=== PATIENT | female | born 1965 | race Caucasian/White ===

== ENCOUNTER 2016-11-08 21:43 | Emergency (ER) | payer OTHER ==
--- NOTE | 2016-11-08 21:57 | ER Document Report ---
ED Medical Screen (RME) - General Stated Complaint: COUGH Time seen by provider: 21:55 Mode of Arrival: Ambulatory Information source: Patient Notes: 51 year-old female presents for cough and cold with fever for 4 days. States she sleeps a lot and has no energy. No fever today. States she has a history of COPD smokes a pack a day. I have greeted and performed a rapid initial assessment of this patient. A comprehensive ED assessment and evaluation of the patient, analysis of test results and completion of medical decision making process will be conducted by an additional ED providers. TRAVEL OUTSIDE OF THE [place] IN LAST 30 DAYS: No - Related Data Allergies/Adverse Reactions: strawberry [[place]] Allergy (Verified 10/06/14 08:50) rash Past Medical History - Past Medical History Cardiac Medical History: Reports: Hx DVT - rle, Hx Heart Attack - at 36? Denies: Hx Coronary Artery Disease, Hx Hypertension Pulmonary Medical History: Denies: Hx Asthma, Hx Bronchitis, Hx COPD, Hx Pneumonia Neurological Medical History: Denies: Hx Cerebrovascular Accident, Hx Seizures Renal/ Medical History: Reports: Hx Ovarian Cysts Musculoskeltal Medical History: Denies Hx Arthritis Past Surgical History: Reports: Hx Cardiac Catheterization, Hx Section - 3, Hx Hysterectomy - partial, Hx Tubal Ligation - Immunizations Immunizations up to date: Yes Hx Diphtheria, Pertussis, Tetanus Vaccination: Yes
--- NOTE | 2016-11-08 23:37 | ER Document Report ---
ED Respiratory Problem - General Chief Complaint: Cold Symptoms Stated Complaint: COUGH Mode of Arrival: Ambulatory Information source: Patient Notes: Patient is a 51-year-old female who presents with a history of COPD with 4 days of cough, chills, sinus pressure. Patient states that her cough is dry and she is not been getting anything up with it. She admits to chills but does not know she's had a fever or not. She admits to wheezing and shortness of breath. She does have inhalers at home but has not been using them because she has been so tired that she's just been sleeping all the time. TRAVEL OUTSIDE OF THE [place] IN LAST 30 DAYS: No - Related Data Allergies/Adverse Reactions: strawberry [[place]] Allergy (Verified 11/08/16 21:55) rash Past Medical History - General Information source: Patient - Social History Smoking Status: Current Every Day Smoker Chew tobacco use (# tins/day): No Frequency of alcohol use: None Drug Abuse: None Family History: Reviewed & Not Pertinent Patient has suicidal ideation: No Patient has homicidal ideation: No - Past Medical History Cardiac Medical History: Reports: Hx DVT - rle, Hx Heart Attack - at 36? Denies: Hx Coronary Artery Disease, Hx Hypertension Pulmonary Medical History: Denies: Hx Asthma, Hx Bronchitis, Hx COPD, Hx Pneumonia Neurological Medical History: Denies: Hx Cerebrovascular Accident, Hx Seizures Renal/ Medical History: Reports: Hx Ovarian Cysts. Denies: Hx Peritoneal Dialysis Musculoskeltal Medical History: Denies Hx Arthritis Past Surgical History: Reports: Hx Cardiac Catheterization, Hx Section - 3, Hx Hysterectomy, Hx Tubal Ligation - Immunizations Immunizations up to date: Yes Hx Diphtheria, Pertussis, Tetanus Vaccination: Yes Hx Pneumococcal Vaccination: 07/20/11 Review of Systems - Review of Systems Constitutional: See HPI EENT: See HPI Cardiovascular: No symptoms reported Respiratory: See HPI Gastrointestinal: No symptoms reported Genitourinary: No symptoms reported Female Genitourinary: No symptoms reported Musculoskeletal: No symptoms reported Skin: No symptoms reported Hematologic/Lymphatic: No symptoms reported Neurological/Psychological: No symptoms reported Physical Exam - Vital signs Vitals: Temp Pulse Resp BP Pulse Ox 98.1 F 86 20 114/76 96 11/08/16 21:48 11/08/16 21:48 11/08/16 21:48 11/08/16 21:48 11/08/16 21:48 - Notes Notes: PHYSICAL EXAMINATION: GENERAL: Mildly ill-appearing, but in no acute distress. HEAD: Atraumatic, normocephalic. EYES: Pupils equal round and reactive to light, extraocular movements intact, sclera anicteric, conjunctiva are normal. ENT: ear canals without erythema or foreign body, TMs pearly cali with good bony landmarks, nares with mucoid discharge, oropharynx clear without exudates. Moist mucous membranes. Maxillary sinuses tender to palpation NECK: Normal range of motion, supple without lymphadenopathy LUNGS: CTAB and equal. No wheezes rales or rhonchi. HEART: Regular rate and rhythm without murmurs EXTREMITIES: Normal range of motion, no pitting edema. No cyanosis. NEUROLOGICAL: Cranial nerves grossly intact. Normal sensory/motor exams. PSYCH: Normal mood, normal affect. SKIN: Warm, Dry, normal turgor, no rashes or lesions noted Course - Re-evaluation Re-evalutation: 11/08/16 23:39 - Vital Signs Vital signs: Temp Pulse Resp BP Pulse Ox 98.1 F 86 20 114/76 96 11/08/16 21:48 11/08/16 21:48 11/08/16 21:48 11/08/16 21:48 11/08/16 21:48 Discharge - Discharge Clinical Impression: COPD exacerbation Sinusitis Qualifiers: Sinusitis location: maxillary Chronicity: acute Recurrence: non-recurrent Qualified Code(s): J01.00 - Acute maxillary sinusitis, unspecified Condition: Stable Disposition: HOME, SELF-CARE Additional Instructions: Please utilize your inhalers every 4 hours as needed for shortness of breath and wheezing. Return immediately for any new or worsening symptoms. Follow up with primary care provider, call tomorrow to make followup appointment. Prescriptions: Azithromycin [Zithromax 250 mg Tablet] 250 mg PO ASDIR PRN #6 tablet PRN Reason: Promethazine/Dextromethorphan [Promethazine-Dm Syrup] 5 ml PO Q8 PRN #120 ml PRN Reason:
[2016-11-08] MEDS ORDERED: GUAIFENESIN/D-METHORPHAN (200-20 MG) SYRUP 10 ML PO ONE (23:38)
[2016-11-08] MEDS ORDERED: IPRATROPIUM/ALBUTEROL 0.5-2.5 MG/3 ML AMPUL NEB ONE (23:38)
[2016-11-08] MEDS ORDERED: AZITHROMYCIN 250 MG TABLET PO ONE (23:38)
[2016-11-09 00:14] VITALS: BP 108/61
== END 2016-11-09 00:14 | disposition home or self-care (01) ==
LOC: ER 21:43
DX: J44.1 Chronic obstructive pulmonary disease with (acute) exacerbation (principal); J01.00 Acute maxillary sinusitis, unspecified; F17.200 Nicotine dependence, unspecified, uncomplicated; Z86.718 Personal history of other venous thrombosis and embolism; Z90.710 Acquired absence of both cervix and uterus; I25.2 Old myocardial infarction
CPT/HCPCS: 94640; 99283; 71020; J3490; J7620

== ENCOUNTER 2017-07-14 16:27 | Emergency (ER) | payer OTHER ==
[2017-07-14 16:40] VITALS: BP 133/77
== END 2017-07-15 00:38 | disposition left against medical advice (07) ==
LOC: ER 16:27
DX: Z53.21 Procedure and treatment not carried out due to patient leaving prior to being seen by health care provider (principal)

== ENCOUNTER 2017-07-21 20:50 | Emergency (ER) | payer OTHER ==
--- NOTE | 2017-07-21 22:23 | ER Document Report ---
ED General - General Chief Complaint: Shortness Of Breath Stated Complaint: CHEST PAIN Time Seen by Provider: 07/21/17 22:22 TRAVEL OUTSIDE OF THE [place] IN LAST 30 DAYS: No - Related Data Allergies/Adverse Reactions: strawberry [[place]] Allergy (Verified 07/14/17 16:37) rash Past Medical History - Social History Family History: Reviewed & Not Pertinent Patient has suicidal ideation: No Patient has homicidal ideation: No - Past Medical History Cardiac Medical History: Reports: Hx DVT - rle, Hx Heart Attack - at 36? Denies: Hx Coronary Artery Disease, Hx Hypertension Pulmonary Medical History: Denies: Hx Asthma, Hx Bronchitis, Hx COPD, Hx Pneumonia Neurological Medical History: Denies: Hx Cerebrovascular Accident, Hx Seizures Renal/ Medical History: Reports: Hx Ovarian Cysts. Denies: Hx Peritoneal Dialysis Musculoskeltal Medical History: Denies Hx Arthritis Past Surgical History: Reports: Hx Cardiac Catheterization, Hx Section - 3, Hx Hysterectomy, Hx Tubal Ligation - Immunizations Immunizations up to date: Yes Hx Diphtheria, Pertussis, Tetanus Vaccination: Yes Hx Pneumococcal Vaccination: 07/20/11 Physical Exam - Vital signs Vitals: Temp Pulse Resp BP Pulse Ox 98.3 F 81 22 H 138/91 H 98 07/21/17 21:08 07/21/17 21:08 07/21/17 21:08 07/21/17 21:08 07/21/17 21:08 Course - Vital Signs Vital signs: Temp Pulse Resp BP Pulse Ox 98.3 F 81 22 H 138/91 H 98 07/21/17 21:08 07/21/17 21:08 07/21/17 21:08 07/21/17 21:08 07/21/17 21:08 - EKG Interpretation by Me Additional EKG results interpreted by me: 07/21/17 22:22 07/21/17 22:30
--- NOTE | 2017-07-21 22:30 | ER Document Report ---
ED General - General Chief Complaint: Shortness Of Breath Stated Complaint: CHEST PAIN Time Seen by Provider: 07/21/17 22:22 Notes: Patient is a 52-year-old female presents with complaint of cough. She has pain also just at her diaphragm which she says is related to coughing. She says she does not cough she has and the pain. Since symptoms have been ongoing for a few days. She says she has had a cold that seems to have progressed to the cough. She has a history of COPD and does continue to smoke. She denies any fevers at home. She went to urgent care today received a shot of steroids and breathing treatments and was sent to ER from there. No other complaints at this time. TRAVEL OUTSIDE OF THE [place] IN LAST 30 DAYS: No - Related Data Allergies/Adverse Reactions: strawberry [[place]] Allergy (Verified 07/14/17 16:37) rash Past Medical History - Social History Smoking Status: Current Every Day Smoker Frequency of alcohol use: None Drug Abuse: None Family History: Reviewed & Not Pertinent Patient has suicidal ideation: No Patient has homicidal ideation: No - Past Medical History Cardiac Medical History: Reports: Hx DVT - rle, Hx Heart Attack - at 36? Denies: Hx Coronary Artery Disease, Hx Hypertension Pulmonary Medical History: Denies: Hx Asthma, Hx Bronchitis, Hx COPD, Hx Pneumonia Neurological Medical History: Denies: Hx Cerebrovascular Accident, Hx Seizures Renal/ Medical History: Reports: Hx Ovarian Cysts. Denies: Hx Peritoneal Dialysis Musculoskeltal Medical History: Denies Hx Arthritis Past Surgical History: Reports: Hx Cardiac Catheterization, Hx Section - 3, Hx Hysterectomy, Hx Tubal Ligation - Immunizations Immunizations up to date: Yes Hx Diphtheria, Pertussis, Tetanus Vaccination: Yes Hx Pneumococcal Vaccination: 07/20/11 Review of Systems - Review of Systems Notes: My Normal Review Basic REVIEW OF SYSTEMS: CONSTITUTIONAL : Denies fever, chills, or sweats. Denies recent illness. EENT: Nasal congestion. CARDIOVASCULAR: Denies chest pain. RESPIRATORY: Cough. GASTROINTESTINAL: Pain of the upper abdomen at the diaphragm with coughing.. Denies nausea, vomiting, or diarrhea. Denies constipation. MUSCULOSKELETAL: Denies neck or back pain or joint pain or swelling. SKIN: Denies rash or skin lesions. NEUROLOGICAL: Denies altered mental status or loss of consciousness. Denies headache. Denies weakness or paralysis or loss of use of either side. Denies problems with gait or speech. Denies sensory or motor loss. ALL OTHER SYSTEMS REVIEWED AND NEGATIVE. Physical Exam - Vital signs Vitals: Temp Pulse Resp BP Pulse Ox 98.3 F 81 22 H 138/91 H 98 07/21/17 21:08 07/21/17 21:08 07/21/17 21:08 07/21/17 21:08 07/21/17 21:08 - Notes Notes: General Appearance: Well nourished, alert, cooperative, no acute distress, no obvious discomfort. Repeated coughing during exam. Vitals: reviewed, See vital signs table. Head: no swelling or tenderness to the head Eyes: PERRL, EOMI, Conjuctiva clear Mouth: No decreasd moisture Neck: Supple, no neck tenderness, No thyromegaly Lungs: Coarse rhonchorous breath sounds in the lower lobes of both lungs as much worse on the right side. No accessory muscle use, good air exchange bilaterally. Heart: Normal rate, Regular rythm, No murmur, no rub Abdomen: Normal BS, soft, No rigidity, mild pain to palpation over the upper abdomen at the level of diaphragm., No guarding, no rebound, no abdominal masses , no organomegaly Extremities: strength 5/5 in all extremities, good pulses in all extremities, no swelling or tenderness in the extremities, no edema. Skin: warm, dry, appropriate color, no rash Neuro: speech clear, oriented x 3, normal affect, responds appropriately to questions. Course - Re-evaluation Re-evalutation: 07/21/17 23:54 On reevaluation patient clinically looks about the same. She still has some wheezing and rhonchi in the bases. I will give her breathing treatment. She is currently receiving the magnesium. Chest x-ray shows does not show a consolidated pneumonia at this time. 07/22/17 01:44 Patient is feeling some better after receiving the magnesium and breathing treatments.. She received a "steroid shot" at the urgent care. I will place her on prednisone. She has an inhaler that she had from urgent care. We will also place her on antibiotics being that she is a smoker, has had current cough and congestion, and that she continues have a focal area of rhonchi on the right lower lobe. Clinically this is consistent with developing pneumonia. I informed the patient that if she feels that she is worsening in any way she must return to ER immediately. I informed her that she needs to be reevaluated within 2 days. I told her that if she cannot get into her primary care doctor within 2 days that she should come back to the ER so we can at least reevaluate her. Patient agrees with plan will be discharged home. I feel she is safe to be discharged home because majority of her lung howard are clear except for the right base, she has no tachycardia, no tachypnea, and her pulse oximetry is 94- 97% on room air. Dictation of this chart was performed using voice recognition software; therefore, there may be some unintended grammatical errors. - Vital Signs Vital signs: Temp Pulse Resp BP Pulse Ox 97.8 F 81 25 H 129/73 H 95 07/22/17 01:08 07/21/17 21:08 07/22/17 01:01 07/22/17 01:01 07/22/17 01:01 - EKG Interpretation by Me Additional EKG results interpreted by me: 07/21/17 22:30 EKG is reviewed and interpreted by me. EKG shows normal sinus rhythm with a rate of [address] segment elevation or depression. No ischemic T-wave inversions. IN interval, QRS duration, QTc intervals are within normal range. Old EKG for comparison is from October 06, 2014. Discharge - Discharge Clinical Impression: Bronchitis Condition: Good Disposition: HOME, SELF-CARE Additional Instructions: BRONCHITIS WITH BRONCHOSPASM (WHEEZING): You have bronchitis with bronchospasm (wheezing). Sometimes people develop wheezing with a chest cold. This occurs either because of an underlying tendency toward asthma or because the virus itself irritates the bronchial tubes. This irritation causes cough, shortness of breath, and wheezing. Emergency treatment of bronchospasm may include adrenaline shots or bronchodilator aerosol. You may feel lightheaded and have a rapid pulse for an hour or two. Rest and get plenty of fluids. At home, we'll treat you with a bronchodilator inhaler. Corticosteroids may be required for some patients. Until you recover, avoid chemical fumes, dusts, pollens, and exercising in very cold or dry air. If you smoke, stop now! Most cases of bronchitis get better without antibiotics. We prescribe antibiotics when we believe bacteria are damaging your airways, or if there's high risk the bronchitis will worsen into pneumonia. Increase your fluid intake. A cool mist humidifier may make your lungs more comfortable. An expectorant (cough medicine that loosens phlegm) can help. Repeated episodes of bronchitis and bronchospasm may result in lung damage -- for example, chronic bronchitis, recurrent pneumonias, or emphysema. If you develop a fever, increased wheezing, chest pain, or severe shortness of breath, you should contact the doctor immediately. INHALED BRONCHODILATORS: You have received a treatment of and/or prescription for an inhaled bronchodilator -- a medication which stimulates the airways in the lung to dilate. This improves the flow of air in asthma, bronchitis, and emphysema. These medicines have some similarity to adrenaline, and can cause similar side effects: shakiness, racing heart, and a sense of nervousness. These side effects decrease with time. Contact your doctor if these side effects are severe. Do not over-use the medicine. Too-frequent use of the inhaler may make it ineffective. Call your doctor if the inhaler is not controlling your symptoms at the prescribed doses. STEROID MEDICATION: You have been given an injection of or oral medicine of the cortisone/ steroid class. This medication is used to control inflammation or allergy. Charlie t is usually only given for a short period of time, until the acute process subsides. There are usually no side effects from short-term use of cortisone-like medications. Some persons feel an increased sense of well-being and are not sleepy at bedtime. Long-term use of cortisone medications is best avoided, unless required for a severe condition. If your condition does not remit, or relapses after the course of corticosteroid medication, you should consult your physician. ANTIBIOTIC THERAPY: You have been given an antibiotic prescription. It's important that you take all the medication, unless instructed otherwise by your physician. Failure to complete the entire course can result in relapse of your condition. Common side effects of antibiotics include nausea, intestinal cramping, or diarrhea. Women may develop vaginal yeast infections, and babies can get yeast (thrush) in the mouth following the use of antibiotics. Contact your physician if you develop significant side effects from this medication. Allergy to this antibiotic can result in hives, wheezing, faintness, or itching. If symptoms of allergy occur, stop the medication and call your doctor. SMOKING: If you smoke, you should stop smoking. The tar and chemicals in cigarette smoke are harmful. Smoking has been shown to cause: emphysema chronic bronchitis lung cancer mouth and throat cancer stomach and pancreas cancer premature aging defects In addition, smoking increases ear and lung infections in children of smokers. FOLLOW-UP CARE: If you have been referred to a physician for follow-up care, call the physician s office for an appointment as you were instructed or within the next two days. If you experience worsening or a significant change in your symptoms, notify the physician immediately or return to the Emergency Department at any time for re-evaluation. Please take the antibiotics and steroids as prescribed. Please try to quit smoking. Please use your albuterol inhaler as 2 puffs every 4 hours. Please return to the ER immediately if you have worsening difficulty breathing, fevers , or feel that you are worsening in anyway. Please follow up with your doctor or the ER in 2 days for reevaluation. Prescriptions: Levofloxacin [Levaquin 750 mg Tablet] 750 mg PO DAILY #5 tablet Prednisone [Deltasone 20 mg Tablet] 3 tab PO DAILY 5 Days tablet Forms: Return to Work Referrals: VICKY FAJARDO NP [Primary Care Provider] - 07/24/17
[2017-07-21] MEDS: MAGNESIUM SULFATE/D5W 1 GM/100 ML RTUPB IV SCH (23:28)
--- NOTE | 2017-07-21 23:29 | RADIOLOGY REPORT (SQ) ---
EXAM DESCRIPTION: CHEST PA/LAT COMPLETED DATE/TIME: 07/21/2017 10:54 pm REASON FOR STUDY: cough COMPARISON: None. NUMBER OF VIEWS: Two view. TECHNIQUE: Frontal and lateral radiographic views of the chest acquired. LIMITATIONS: None. FINDINGS: LUNGS AND PLEURA: Peribronchial cuffing and interstitial changes. No consolidation, effus ion, or pneumothorax. MEDIASTINUM AND HILAR STRUCTURES: No masses. No contour abnormalities. HEART AND VASCULAR STRUCTURES: Heart normal in size and contour. No evidence for failure. BONES: No acute findings. HARDWARE: None in the chest. OTHER: No other significant finding. IMPRESSION: REACTIVE AIRWAY DISEASE VERSUS VIRAL SYNDROME. NO CONSOLIDATION. TECHNICAL DOCUMENTATION: JOB ID: [id number] [employer]- All Rights Reserved
[2017-07-21] MEDS ORDERED: IPRATROPIUM/ALBUTEROL 0.5-2.5 MG/3 ML AMPUL NEB ONE (23:54)
[2017-07-22] MEDS: MAGNESIUM SULFATE/D5W 1 GM/100 ML RTUPB IV SCH (00:24)
[2017-07-22] MEDS ORDERED: LEVOFLOXACIN 750 MG TABLET PO ONE (00:57)
[2017-07-22 01:17] VITALS: BP 129/73
--- NOTE | 2017-07-22 04:45 | EKG REPORT ---
SEVERITY:- BORDERLINE ECG - SINUS RHYTHM BORDERLINE T ABNORMALITIES, ANTERIOR LEADS : Confirmed by: Iza Carrillo MD 22-Jul-2017 04:29:10
== END 2017-07-22 01:45 | disposition home or self-care (01) ==
LOC: ER 20:50
DX: J40 Bronchitis, not specified as acute or chronic (principal); F17.200 Nicotine dependence, unspecified, uncomplicated; Z86.718 Personal history of other venous thrombosis and embolism; I25.2 Old myocardial infarction; Z90.710 Acquired absence of both cervix and uterus
CPT/HCPCS: 93005; 94640; 99284; 96365; 96366; 71020; 93010; J3475 ×2; J7620

== ENCOUNTER 2018-07-19 06:35 | Emergency (ER) | payer BC, OTHER ==
[2018-07-19] MEDS ORDERED: METHYLPREDNISOLONE INJ 125 MG/2 ML SDV IV ONE (07:23)
[2018-07-19] MEDS ORDERED: LIDOCAINE 1% INJ-PF (10 MG/ML) 30 ML SDV NEB ONE (07:23)
[2018-07-19] MEDS ORDERED: LIDOCAINE 1% INJ-PF (10 MG/ML) 30 ML SDV INJ ONE (07:23)
[2018-07-19] MEDS ORDERED: IPRATROPIUM/ALBUTEROL 0.5-2.5 MG/3 ML AMPUL NEB ONE (07:23)
--- NOTE | 2018-07-19 07:23 | ER Document Report ---
ED Respiratory Problem - General Mode of Arrival: Ambulatory Information source: Patient TRAVEL OUTSIDE OF THE [place] IN LAST 30 DAYS: No - General Chief Complaint: Breathing Difficulty Stated Complaint: DIFFICULTY BREATHING Time Seen by Provider: 07/19/18 07:06 Notes: 53-year-old female who presents to the emergency department today with complaints of 2-3 days of a nonproductive cough with wheezing. Patient is a smoker and has been for quite some time. Patient states that she always has a chronic cough from the smoking however it has gotten worse over the last 2 or 3 days. Patient denies any fevers. (FLOR CRANE) - Related Data Allergies/Adverse Reactions: strawberry [[place]] Allergy (Verified 07/19/18 06:40) rash Past Medical History - General Information source: Patient - Social History Smoking Status: Current Every Day Smoker Cigarette use (# per day): Yes Chew tobacco use (# tins/day): No Frequency of alcohol use: Occasional Drug Abuse: None Family History: Reviewed & Not Pertinent Patient has suicidal ideation: No Patient has homicidal ideation: No - Past Medical History Cardiac Medical History: Reports: Hx DVT - RLE, Hx Heart Attack - at 36? Renal/ Medical History: Reports: Hx Ovarian Cysts Past Surgical History: Reports: Hx Cardiac Catheterization, Hx Section - 3, Hx Hysterectomy, Hx Tubal Ligation - Immunizations Immunizations up to date: Yes Hx Diphtheria, Pertussis, Tetanus Vaccination: Yes Hx Pneumococcal Vaccination: 07/20/11 Review of Systems - Review of Systems Constitutional: No symptoms reported EENT: No symptoms reported Cardiovascular: No symptoms reported Respiratory: See HPI, Cough, Wheezing Gastrointestinal: No symptoms reported Genitourinary: No symptoms reported Female Genitourinary: No symptoms reported Musculoskeletal: No symptoms reported Skin: No symptoms reported Hematologic/Lymphatic: No symptoms reported Neurological/Psychological: No symptoms reported -: Yes All other systems reviewed and negative Physical Exam - Vital signs Vitals: Temp Pulse Resp BP Pulse Ox 97.6 F 96 24 H 116/78 96 07/19/18 06:39 07/19/18 06:39 07/19/18 06:39 07/19/18 06:39 07/19/18 06:39 - Notes Notes: Physical Exam: General: Alert, appears well. HEENT: Normocephalic. Atraumatic. PERRL. Extraocular movements intact. Oropharynx clear. Neck: Supple. Non-tender. Respiratory: Tight inspiratory and expiratory wheezing bilaterally. Dry cough spasm. Tachypneic. 2-3 word sentences moreso due to cough than dyspnea. Cardiovascular: Regular rate and rhythm. Abdominal: Normal Inspection. Non-tender. No distension. Normal Bowel Sounds. Back: Non-tender. No deformity or step off. Extremities: Moves all four extremities. Upper extremities: Normal inspection. Normal ROM. Lower extremities: Normal inspection. No edema. Normal ROM. Neurological: Normal cognition. AAOx4. Normal speech. Psychological: Normal affect. Normal Mood. Skin: Warm. Dry. Normal color. ([place]ANE) - Vital Signs Vital signs: Temp Pulse Resp BP Pulse Ox 97.6 F 96 27 H 113/64 95 07/19/18 06:39 07/19/18 06:39 07/19/18 10:01 07/19/18 10:00 07/19/18 10:01 Discharge - Discharge Clinical Impression: COPD with acute exacerbation Condition: Stable Disposition: HOME, SELF-CARE Additional Instructions: Bronchitis with Bronchospasm (Wheezing) You have bronchitis with bronchospasm (wheezing). Sometimes people develop wheezing with a chest cold. This occurs either because of an underlying tendency toward asthma or because the virus itself irritates the bronchial tubes. This irritation causes cough, shortness of breath, and wheezing. Emergency treatment of bronchospasm may include adrenaline shots or bronchodilator aerosol. You may feel lightheaded and have a rapid pulse for an hour or two. Rest and get plenty of fluids. At home, we'll treat you with a bronchodilator inhaler. Corticosteroids may be required for some patients. Until you recover, avoid chemical fumes, dusts, pollens, and exercising in very cold or dry air. If you smoke, stop now! Most cases of bronchitis get better without antibiotics. We prescribe antibiotics when we believe bacteria are damaging your airways, or if there's high risk the bronchitis will worsen into pneumonia. Increase your fluid intake. A cool mist humidifier may make your lungs more comfortable. An expectorant (cough medicine that loosens phlegm) can help. Repeated episodes of bronchitis and bronchospasm may result in lung damage -- for example, chronic bronchitis, recurrent pneumonias, or emphysema. If you develop a fever, increased wheezing, chest pain, or severe shortness of breath, you should contact the doctor immediately. Start the prednisone and the Zithromax tomorrow. Drink plenty of fluids. Use the albuterol inhaler 2 puffs every 2-4 hours as needed for wheezing. Stop smoking. Rest. Follow-up with your doctor tomorrow if not improving. RETURN TO THE EMERGENCY ROOM IF ANY NEW OR WORSENING SYMPTOMS. Prescriptions: Albuterol Sulfate [Proair HFA] 1 - 2 puff IH Q4 PRN #1 inhaler PRN Reason: Azithromycin [Zithromax 250 mg Tablet] 250 mg PO DAILY #4 tablet Prednisone [Deltasone 10 mg Tablet] 10 mg PO ASDIR PRN #21 tablet PRN Reason: Referrals: VICKY FAJARDO, [employer] [COMMUNITY BASED STAFF] - Follow up as needed Scribe Attestation: 07/19/18 08:33 I personally performed the services described in the documentation, reviewed and edited the documentation which was dictated to the scribe in my presence, and it accurately records my words and actions. (AMMI JEFFRIES) Scribe Documentation - Scribe Written by Dwight:: Dwight Adame, 07/19/2018 0756 acting as scribe for :: Michael
[2018-07-19] MEDS ORDERED: ALBUTEROL SULFATE 0.083% NEB 2.5 MG/3 ML AMPUL NEB ONE ×3 (07:52→09:30)
[2018-07-19] MEDS ORDERED: NORMAL SALINE 1000 ML 1,000 ML IV ONE ×2 (08:06→09:30)
[2018-07-19] MEDS ORDERED: PREDNISONE 20 MG TABLET PO ONE (08:33)
[2018-07-19] MEDS ORDERED: HYDROCODONE/ACETAMINOPHEN 5-325 MG TABLET PO ONE (08:33)
[2018-07-19] MEDS ORDERED: MAGNESIUM SULFATE/D5W 1 GM/100 ML RTUPB IV ONE (09:30)
[2018-07-19] MEDS ORDERED: AZITHROMYCIN 250 MG TABLET PO ONE (10:58)
[2018-07-19] MEDS ORDERED: ALBUTEROL SULFATE HFA (90 MCG/PUFF) 8 GM MDI (1 MDI/ER DISP) IH ONE (11:34)
[2018-07-19 11:45] VITALS: BP 110/77
== END 2018-07-19 11:44 | disposition home or self-care (01) ==
LOC: ER 06:35
DX: J44.1 Chronic obstructive pulmonary disease with (acute) exacerbation (principal); F17.210 Nicotine dependence, cigarettes, uncomplicated; R05 Cough; Z91.018 Allergy to other foods
CPT/HCPCS: 94640 ×2; 99285; 96361; 96375; 96365; J3490 ×2; J2930; J3475; J7512; J7620

== ENCOUNTER 2018-11-19 19:24 | Emergency (ER) | payer BC ==
[2018-11-19] MEDS ORDERED: IBUPROFEN 800 MG TABLET PO ONE (20:12)
[2018-11-19] MEDS ORDERED: METHOCARBAMOL 500 MG TABLET PO ONE (20:12)
--- NOTE | 2018-11-19 20:34 | ER Document Report ---
ED Extremity Problem, Upper - General Chief Complaint: Shoulder Injury Stated Complaint: SHOULDER PAIN Time Seen by Provider: 11/19/18 19:47 Primary Care Provider: [facility] [Provider Group] - Follow up as needed ALYSSIA HU MD [ACTIVE STAFF] - Follow up as needed Mode of Arrival: Ambulatory Information source: Patient Notes: 53-year-old female presents to ED for complaint of right shoulder and scapular area pain. 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 She states she is tried ice and heating Tylenol and over ibuprofen for no with no relief. She states she has not been to a primary care doctor or an orthopedic doctor she said this pain is been off and on for over a month and getting worse not better. She states she is tried ice packs warm packs with no relief. Patient is alert and oriented respirations regular and unlabored is able to complete full range of motion but with pain. TRAVEL OUTSIDE OF THE [place] IN LAST 30 DAYS: No - HPI Patient complains to provider of: Right, Shoulder, Other - Scapular area Onset: Other - Month Recent injury: Yes - Frequent lifting Where: Work Quality of pain: Sharp, Throbbing Severity of pain: Moderate, Worse Pain Level: 4 Associated symptoms: None Exacerbated by: Movement, Exertion Relieved by: Nothing Similar symptoms previously: Yes Recently seen / treated by doctor: No - Related Data Allergies/Adverse Reactions: strawberry [[place]] Allergy (Verified 07/19/18 06:40) rash Past Medical History - General Information source: Patient - Social History Smoking Status: Current Every Day Smoker Cigarette use (# per day): Yes - Pack per day Chew tobacco use (# tins/day): No Smoking Education Provided: Yes - 4 minutes Frequency of alcohol use: Social - 2 times a week Drug Abuse: None Occupation: Catering Lives with: Family Family History: Reviewed & Not Pertinent Patient has suicidal ideation: No Patient has homicidal ideation: No - Past Medical History Cardiac Medical History: Reports: Hx DVT - RLE, Hx Heart Attack - at 36? Pulmonary Medical History: Reports: None EENT Medical History: Reports: None Neurological Medical History: Reports: None Endocrine Medical History: Reports: None Renal/ Medical History: Reports: Hx Ovarian Cysts Malignancy Medical History: Reports: None GI Medical History: Reports: None Musculoskeletal Medical History: Reports Hx Musculoskeletal Trauma Skin Medical History: Reports None Psychiatric Medical History: Reports: None Traumatic Medical History: Reports: None Infectious Medical History: Reports: None Past Surgical History: Reports: Hx Cardiac Catheterization, Hx Section - 3, Hx Genitourinary Surgery - Bladder repair after the bladder was cut in half stone , Hx Hysterectomy, Hx Tubal Ligation - Immunizations Immunizations up to date: Yes Hx Diphtheria, Pertussis, Tetanus Vaccination: Yes Hx Pneumococcal Vaccination: 07/20/11 Review of Systems - Review of Systems Constitutional: No symptoms reported EENT: No symptoms reported Cardiovascular: No symptoms reported Respiratory: No symptoms reported Gastrointestinal: No symptoms reported Genitourinary: No symptoms reported Female Genitourinary: No symptoms reported Musculoskeletal: Joint pain - Right shoulder, Joint swelling, Muscle pain, Muscle stiffness Skin: No symptoms reported Hematologic/Lymphatic: No symptoms reported Neurological/Psychological: No symptoms reported -: Yes All other systems reviewed and negative Physical Exam - Vital signs Vitals: Temp Pulse Resp BP Pulse Ox 97.8 F 88 16 135/74 H 98 11/19/18 19:34 11/19/18 19:34 11/19/18 19:34 11/19/18 19:34 11/19/18 19:34 Interpretation: Normal - General General appearance: Appears well, Alert - HEENT Head: Normocephalic, Atraumatic Eyes: Normal Pupils: PERRL - Respiratory Respiratory status: No respiratory distress Chest status: Nontender Breath sounds: Normal Chest palpation: Normal - Cardiovascular Rhythm: Regular Heart sounds: Normal auscultation Murmur: No - Abdominal Inspection: Normal Distension: No distension Bowel sounds: Normal Tenderness: Nontender Organomegaly: No organomegaly - Back Back: Normal, Nontender - Extremities General upper extremity: Normal inspection, Normal color, Normal ROM, Normal temperature General lower extremity: Normal inspection, Nontender, Normal color, Normal ROM, Normal temperature, Normal weight bearing. No: Corey's sign Shoulder: Tender. No: Abrasion, Deformity, Dislocation, Ecchymosis, Instability, Laceration, Limited ROM - Pain with range of motion but is able to complete range of motion Arm: Normal Elbow: Normal Forearm: Normal Wrist: Other. No: Tender, Abrasion, Axial load of thumb pain, Deformity, Dislocation, Ecchymosis, Instability, Laceration, Limited ROM - Numbness and tingling to the fingers of the right hand, Navicular tenderness - Neurological Neuro grossly intact: Yes Cognition: Normal Orientation: AAOx4 Lawrence Coma Scale Eye Opening: Spontaneous Yesi Coma Scale Verbal: Oriented Yesi Coma Scale Motor: Obeys Commands Yesi Coma Scale Total: 15 Speech: Normal Motor strength normal: LUE, RUE, LLE, RLE Sensory: Normal - Psychological Associated symptoms: Normal affect, Normal mood - Skin Skin Temperature: Warm Skin Moisture: Dry Skin Color: Normal Course - Re-evaluation Re-evalutation: 11/20/18 02:09 X-rays discussed with Dr. Pearson. He stated that this patient did not need an MRI at this time but she did not need to follow-up with orthopedics and her primary doctor. Written reports of x-rays were given to patient. Patient was given instructions on shoulder exercises and muscle relaxers. She was instructed to follow-up with her primary doctor tomorrow. Patient verbalized understanding and agreement with treatment plan. - Vital Signs Vital signs: Temp Pulse Resp BP Pulse Ox 98.2 F 75 17 138/80 H 100 11/19/18 21:39 11/19/18 21:39 11/19/18 21:39 11/19/18 21:39 11/19/18 21:39 - Diagnostic Test Radiology reviewed: Image reviewed, Reports reviewed Discharge - Discharge Clinical Impression: Numbness of right hand, Cervical disc disease Injury of shoulder, right Qualifiers: Encounter type: initial encounter Qualified Code(s): S49.91XA - Unspecified injury of right shoulder and upper arm, initial encounter Condition: Stable Disposition: HOME, SELF-CARE Additional Instructions: Shoulder Injury You have injured your shoulder. This usually results from stretching or tearing of the tendons during trauma. Time and protection are required in order to heal properly. Many injuries are quite disabling, and should be taken seriously. Initial treatment includes cold packs and a sling to rest the shoulder. T he physician has assessed the seriousness of your injury, and has outlined a treatment plan. Understand that this treatment may change, depending on how you progress. If a re-examination was recommended, it is important that you follow up as instructed. Some shoulder injuries (such as partial tear of the rotator cuff) are only suspected after you've failed to improve. Call us if there's severe pain, numbness, or loss of function. Exercise Program for the Shoulder Since the shoulder moves in so many directions, the joint attachment is weak. Muscles provide most of the stability to the shoulder. You must exercise your shoulder to prevent painful instability or stiffening. PASSIVE - These may be begun within a few days of the injury. While standing, lean forward, allowing the arm to hang down towards the floor. Move the arm in small circles while slowly twisting your chest towards and away from the hanging arm. Do this for one minute. ACTIVE - These may be performed when the doctor gives permission. Begin with the arms at the sides. Raise the arms forward (shoulder's width apart) until they reach shoulder level. Then slowly swing both arms back until they are aiming straight out away from each other. Then bring them forward again, and finally, lower them to your sides. Repeat 20 to 30 times. As you improve, put weights in your hands for the exercise. Start with one pound, and work up to 10 pounds. Never use more than is comfortable. Athletes may work up to 30 pounds. Ibuprofen Ibuprofen is an excellent, safe drug for pain control. In addition, it has potent antiinflammatory effects which are beneficial, especially in the treatment of injuries, arthritis, or tendonitis. It's best to take ibuprofen with food. Persons with ulcer disease or allergy to aspirin should notify their physician of this before taking ibuprofen. Take the medication exactly as prescribed. Don't take additional doses unless instructed to do so by your doctor. If you develop wheezing, shortness of breath, hives, faintness, stomach pain, vomiting, or dark black stools, return for re-evaluation at once. Muscle Relaxers Muscle relaxing medications are usually prescribed for acute muscle spasm or injury to the neck and back. They are often combined with antiinflammatory pain medication for increased relief. You may stop the muscle relaxer when the pain and stiffness have improved. Start the medication again if spasms recur. Muscle relaxers may cause drowsiness, especially with the first dose. Do not operate machinery or drive while under the effects of the medication. Most muscle relaxers last up to 24 hours. Do not combine the medication with alcohol. Oral Narcotic Medication You have been given a Sanghvi dispense pack for pain control. This medication is a narcotic. It's best taken with food, as nausea can result if taken on an empty stomach. Don't operate machinery or drive within six hours of taking this medication. Do not combine this medicine with alcohol, or with any medication which can cause sedation (such as cold tablets or sleeping pills) unless you get permission from the physician. Narcotics tend to cause constipation. If possible, drink plenty of fluids and eat a diet high in fiber and fruits. FOLLOW-UP CARE: If you have been referred to a physician for follow-up care, call the physicians office for an appointment as you were instructed or within the next two days. If you experience worsening or a significant change in your symptoms, notify the physician immediately or return to the Emergency Department at any time for re-evaluation. Prescriptions: Methocarbamol [Robaxin 500 mg Tablet] 500 mg PO BIDP PRN #14 tablet PRN Reason: For Pain Scale 3-5 Forms: Elevated Blood Pressure, Smoking Cessation Education Referrals: [facility] [Provider Group] - Follow up as needed ALYSSIA HU MD [ACTIVE STAFF] - Follow up as needed
--- NOTE | 2018-11-19 20:38 | RADIOLOGY REPORT (SQ) ---
EXAM DESCRIPTION: XR RIGHT SHOULDER 2 OR MORE VIEWS COMPLETED DATE/TME: 11/19/2018 20:12 CLINICAL HISTORY: 53 years, Female, pain right shoulder x month COMPARISON: None. NUMBER OF VIEWS: TECHNIQUE: LIMITATIONS: None. FINDINGS: No acute fracture or dislocation. I believe there is an old fracture of the lateral clavicle. There is no definite evidence of arthritis. The acromioclavicular joint appears intact. There are no soft tissue calcifications. IMPRESSION: No acute finding. copyright 2010 [employer]- All Rights Reserved
--- NOTE | 2018-11-19 20:48 | RADIOLOGY REPORT (SQ) ---
5 VIEWS OF THE CERVICAL SPINE HISTORY: Right hand tingling. COMPARISON: None. FINDINGS: No acute cervical fractures seen. There is straightening of the normal cervical lordosis, which may be due to cervical collar, muscle spasm, or patient positioning. Retrolisthesis of C5-C6. There are multilevel bony neural foraminal narrowing on the oblique views greatest at the right C3-C4 level. IMPRESSION: 1. No acute fracture or subluxation. 2. Multilevel foraminal narrowing, greatest at the right C3-C4 level. Consider MRI for complete evaluation.
[2018-11-19] MEDS ORDERED: LIDOCAINE 5% (700 MG) TRANSDERMAL ADH..PATCH TP ONE (21:30)
[2018-11-19] MEDS ORDERED: HYDROCODONE/ACETAMINOPHEN 5-325 MG (6 TAB/ER DISP) PO PRN (21:30)
[2018-11-19 21:41] VITALS: BP 138/80
== END 2018-11-19 21:43 | disposition home or self-care (01) ==
LOC: ER 19:24
DX: S49.91XA Unspecified injury of right shoulder and upper arm, initial encounter (principal); X50.0XXA Overexertion from strenuous movement or load, initial encounter; Y99.0 Civilian activity done for income or pay; M50.90 Cervical disc disorder, unspecified, unspecified cervical region; R20.0 Anesthesia of skin; R20.2 Paresthesia of skin; F17.210 Nicotine dependence, cigarettes, uncomplicated; Z71.6 Tobacco abuse counseling; Z91.018 Allergy to other foods
CPT/HCPCS: 72050; 99283; 99406

== ENCOUNTER 2019-04-09 08:06 | Emergency (ER) | payer BC, OTHER ==
--- NOTE | 2019-04-09 09:00 | RADIOLOGY REPORT (SQ) ---
EXAM DESCRIPTION: TIBIA FIBULA LEFT COMPLETED DATE/TIME: 04/09/2019 8:32 am REASON FOR STUDY: fell and hit lower leg on truck hitch; swelling COMPARISON: None. NUMBER OF VIEWS: Two views. TECHNIQUE: Two radiographic images acquired of the left tibia and fibula to include the knee and ank le in at least one projection. LIMITATIONS: None. FINDINGS: MINERALIZATION: Normal. BONES: No acute fracture or dislocation. No worrisome bone lesions. SOFT TISSUES: No obvious swelling or foreign body. OTHER: No other significant finding. IMPRESSION: NEGATIVE STUDY OF THE LEFT TIBIA AND FIBULA. NO RADIOGRAPHIC EVIDENCE OF ACUTE INJURY. TECHNICAL DOCUMENTATION: JOB ID: [id number] [employer]- All Rights Reserved Reading location - IP/workstation name: [email or web address]
--- NOTE | 2019-04-09 09:57 | ER Document Report ---
HPI - HPI Time Seen by Provider: 04/09/19 09:47 Pain Level: 4 Notes: Patient is a 53-year-old female who presents complaining of left anterior tibial pain status post injury yesterday. Patient states that she was getting out of her one vehicle and she rubbed the tibia off of a hinge when she was stepping to the ground. Patient states that she has noticed some swelling and pain to the anterior leg. She is otherwise able to ambulate without difficulty. The pain d oes not radiate. Denies any headache, fever, head injury, neck pain, URI, sore throat, chest pain, palpitations, syncope, cough, shortness of breath, wheeze, dyspnea, abdominal pain, nausea/vomiting/diarrhea, urinary retention, dysuria, hematuria, loss of control of bowel or bladder, numbness/tingling, saddle anesthesia, muscle paralysis/weakness, or rash. - ROS Systems Reviewed and Negative: Yes All other systems reviewed and negative - REPRODUCTIVE Reproductive: DENIES: : Past Medical History - Social History Smoking Status: Unknown if Ever Smoked Family History: Reviewed & Not Pertinent - Past Medical History Cardiac Medical History: Reports: Hx DVT - RLE, Hx Heart Attack - at 36? Renal/ Medical History: Reports: Hx Ovarian Cysts. Denies: Hx Peritoneal Dialysis Musculoskeletal Medical History: Reports Hx Musculoskeletal Trauma Past Surgical History: Reports: Hx Cardiac Catheterization, Hx Section - 3, Hx Genitourinary Surgery - Bladder repair after the bladder was cut in half stone , Hx Hysterectomy, Hx Tubal Ligation - Immunizations Immunizations up to date: Yes Hx Diphtheria, Pertussis, Tetanus Vaccination: Yes Hx Pneumococcal Vaccination: 07/20/11 Vertical Provider Document - CONSTITUTIONAL Agree With Documented VS: Yes Notes: PHYSICAL EXAMINATION: GENERAL: Well-appearing, well-nourished and in no acute distress. LUNGS: Breath sounds clear to auscultation bilaterally and equal. No wheezes rales or rhonchi. HEART: Regular rate and rhythm without murmurs, rubs, gallops. Musculoskeletal: Left lower leg: FROM to passive/active. Strength 5+/5. N/V intact distal. + small abrasion x2 noted to anterior tibia w/o any significant break in the skin, no bleeding. + tenderness anterior lower and mid tibia to palpation. No calf tenderness. + minimal anterior ecchymosis near abrasion and very mild swelling noted. No tenderness to knee/ankle/foot otherwise. Extremities: No cyanosis, clubbing, or edema b/l. Peripheral pulses 2+. Capillary refill less than 3 seconds. NEUROLOGICAL: Cranial nerves grossly intact. Normal speech, normal gait. Normal sensory, motor exams PSYCH: Normal mood, normal affect. SKIN: Warm, Dry, normal turgor, no rashes or lesions noted. - INFECTION CONTROL TRAVEL OUTSIDE OF THE [place] IN LAST 30 DAYS: No Course - Re-evaluation Re-evalutation: 04/09/19 09:55 Patient is an afebrile, well-hydrated, 53-year-old female who presents to the ED with left leg pain which I suspect to be a contusion. Vitals are acceptable without any significant tachycardia, tachypnea, or hypoxia. PE is otherwise unremarkable for any neurovascular compromise, obvious tendon/ligament rupture, obvious fracture/dislocation, septic joint. X-ray was unremarkable for any acute pathology. Pt declined crutches. Patient declined any Tylenol/motrin or ice. Patient is nontoxic-appearing. Patient is able to ambulate and weight- bear w/o difficulty. No other labs or imaging warranted at this time based on H&P. Conservative measures otherwise for symptoms. Recheck with your PCM in 3- 5 days. Consider consult orthopedics. Return to the ED with any worsening/concerning symptoms otherwise as reviewed in discharge. Patient is in agreement. - Vital Signs Vital signs: Temp Pulse Resp BP Pulse Ox 98.1 F 81 18 137/66 H 96 04/09/19 08:13 04/09/19 08:13 04/09/19 08:13 04/09/19 08:13 04/09/19 08:13 Discharge - Discharge Clinical Impression: Left leg pain Condition: Stable Disposition: HOME, SELF-CARE Additional Instructions: Rest, Ice, Compression, Elevation Tylenol/ibuprofen as needed Light stretches daily Strength exercises as able Moist heat and massage may help F/u with your PCP in 3-5 days for a recheck Consider consult(s) with Orthopedics/physical therapy for ongoing/worsening symptoms Return to the ED with any worsening symptoms and/or development of fever, headache, chest pain, palpitations, syncope, shortness of breath, trouble breathing, abdominal pain, n/v/d, muscle weakness/paralysis, numbness/tingling, swelling, redness, or other worsening symptoms that are concerning to you. Forms: Elevated Blood Pressure Referrals: [facility] [Provider Group] - Follow up as needed
[2019-04-09 10:04] VITALS: BP 140/88
== END 2019-04-09 10:00 | disposition home or self-care (01) ==
LOC: ER 08:06
DX: M89.8X6 Other specified disorders of bone, lower leg (principal); S80.10XA Contusion of unspecified lower leg, initial encounter; W22.8XXA Striking against or struck by other objects, initial encounter; Y93.89 Activity, other specified
CPT/HCPCS: 99283

== ENCOUNTER 2019-08-07 14:23 | Emergency (ER) | payer BC ==
[2019-08-07 14:36] VITALS: BP 142/65
--- NOTE | 2019-08-07 14:46 | ER Document Report ---
ED Medical Screen (RME) - General Chief Complaint: Back Pain Stated Complaint: LEG PAIN Time Seen by Provider: 08/07/19 14:44 Mode of Arrival: Ambulatory Information source: Patient Notes: 54-year-old female presents to ED for complaint of pain to the left buttocks and down the left leg that started last night. She states her daughter went and got her a lidocaine patch and she has put that on. She states she does not have a history of back pain. Patient is alert oriented respirations regular and unlabored speaking in full sentences. I have greeted and performed a rapid initial assessment of this patient. A comprehensive ED assessment and evaluation of the patient, analysis of test results and completion of medical decision making process will be conducted by an additional ED providers. TRAVEL OUTSIDE OF THE [place] IN LAST 30 DAYS: No - Related Data Allergies/Adverse Reactions: strawberry [[place]] Allergy (Verified 08/07/19 14:43) rash Home Medications: adderall Past Medical History - Social History Chew tobacco use (# tins/day): No Frequency of alcohol use: None Drug Abuse: None - Past Medical History Cardiac Medical History: Reports: Hx DVT - RLE, Hx Heart Attack - at 36? Renal/ Medical History: Reports: Hx Ovarian Cysts. Denies: Hx Peritoneal Dialysis Musculoskeltal Medical History: Reports Hx Musculoskeletal Trauma Past Surgical History: Reports: Hx Cardiac Catheterization, Hx Section - 3, Hx Genitourinary Surgery - Bladder repair after the bladder was cut in half stone , Hx Hysterectomy, Hx Tubal Ligation - Immunizations Immunizations up to date: Yes Hx Diphtheria, Pertussis, Tetanus Vaccination: Yes Physical Exam - Vital signs Vitals: Temp Pulse Resp BP Pulse Ox 98.1 F 89 18 142/65 H 96 08/07/19 14:35 08/07/19 14:35 08/07/19 14:35 08/07/19 14:35 08/07/19 14:35 Course - Vital Signs Vital signs: Temp Pulse Resp BP Pulse Ox 98.1 F 89 18 142/65 H 96 08/07/19 14:35 08/07/19 14:35 08/07/19 14:35 08/07/19 14:35 08/07/19 14:35
--- NOTE | 2019-08-07 15:25 | RADIOLOGY REPORT (SQ) ---
EXAM DESCRIPTION: L SPINE WHOLE COMPLETED DATE/TIME: 08/07/2019 3:12 pm REASON FOR STUDY: buttock pain with radiating down leg COMPARISON: None. NUMBER OF VIEWS: Five views including obliques. TECHNIQUE: AP, lateral, oblique, and sacral radiographic images acquired of the lumbar spine. LIMITATIONS: None. FINDINGS: MINERALIZATION: Normal. SEGMENTATION: Normal. No transitional anatomy. ALIGNMENT: Normal. VERTEBRAE: Maintained height. No fracture or worrisome bone lesion. DISCS: Mild disc space narrowing with small osteophytes. POSTERIOR ELEMENTS: Pedicles and facets are intact. No pars defect or posterior arch defects. HARDWARE: None in the spine. PARASPINAL SOFT TISSUES: Normal. PELVIS: Intact as visualized. No fractures or worrisome bone lesions. SI joints intact. OTHER: No other significant finding. IMPRESSION: DEGENERATIVE DISC DISEASE. NO ACUTE FINDINGS. TECHNICAL DOCUMENTATION: JOB ID: [id number] [employer]- All Rights Reserved Reading location - IP/workstation name: [email or web address]
--- NOTE | 2019-08-07 15:29 | ER Document Report ---
HPI - HPI Patient complains to provider of: Left buttocks pain Time Seen by Provider: 08/07/19 14:44 Onset: This morning Onset/Duration: Sudden Quality of pain: Achy Severity: Moderate Pain Level: 3 Context: Patient presents emergency department with complaints of left buttocks pain. 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 She reports they went to a alliance party yesterday and she was climbing up steps and she woke up at approximately 3:00 this morning with severe pain in her left buttocks. Reports pain with sitting movement. Reports history of sciatica but denies back pain. Denies fever vomiting diarrhea. Denies injury or trauma. Reports she did put an tmbz-oxf-eevnrtt pain patch on it and took vhmg-yxr-lrmrrsi pain medication but it did not help she reports she try to go to work today and was crying in the car.. Associated Symptoms: None Exacerbated by: Sitting, Movement, Walking Relieved by: Denies Similar symptoms previously: No Recently seen / treated by doctor: No - REPRODUCTIVE Reproductive: DENIES: : Past Medical History - General Information source: Patient Last Menstrual Period: menopause - Social History Smoking Status: Current Every Day Smoker Chew tobacco use (# tins/day): No Frequency of alcohol use: None Drug Abuse: None Occupation: [employer] Family History: Reviewed & Not Pertinent Patient has suicidal ideation: No Patient has homicidal ideation: No - Past Medical History Cardiac Medical History: Reports: Hx DVT - RLE, Hx Heart Attack - at 36? Renal/ Medical History: Reports: Hx Ovarian Cysts. Denies: Hx Peritoneal Dialysis Musculoskeletal Medical History: Reports Hx Musculoskeletal Trauma Past Surgical History: Reports: Hx Cardiac Catheterization, Hx Section - 3, Hx Genitourinary Surgery - Bladder repair after the bladder was cut in half stone , Hx Hysterectomy, Hx Tubal Ligation - Immunizations Immunizations up to date: Yes Hx Diphtheria, Pertussis, Tetanus Vaccination: Yes Hx Pneumococcal Vaccination: 07/20/11 Vertical Provider Document - CONSTITUTIONAL Agree With Documented VS: Yes Exam Limitations: No Limitations General Appearance: WD/WN, No Apparent Distress - INFECTION CONTROL TRAVEL OUTSIDE OF THE [place] IN LAST 30 DAYS: No - HEENT HEENT: Atraumatic, Normocephalic - NECK Neck: Supple - RESPIRATORY Respiratory: No Respiratory Distress - CARDIOVASCULAR Cardiovascular: Regular Rate - GI/ABDOMEN Gastrointestinal: Abdomen Soft, Abdomen Non-Tender - BACK Back: Normal Inspection - Patient denies back pain reports left buttocks tender to palpate reports no erythema no swelling no warmth. Patient complains of pain with sitting with movement - MUSCULOSKELETAL/EXTREMETIES Musculoskeletal/Extremeties: MAJAYLON, FROM, Non-Tender - NEURO Level of Consciousness: Awake, Alert, Appropriate Motor/Sensory: No Motor Deficit - DERM Integumentary: Warm, Dry Course - Re-evaluation Re-evalutation: Lumbar Spine X-Ray 08/07/19 14:48 IMPRESSION: DEGENERATIVE DISC DISEASE. NO ACUTE FINDINGS. 08/07/19 16:35 Patient presented with left buttocks pain. X-ray negative for acute fracture. Denies back pain. Denies leg pain. Possible strain from going up the steps possible piriformis syndrome. Discussed this with patient. Discussed Toradol Lidoderm patch and muscle relaxers. She was also instructed on stretches. She verbalized understanding to all instructions. Dictation of this chart was performed using voice recognition software; therefor e, there may be some unintended grammatical errors. - Vital Signs Vital signs: Temp Pulse Resp BP Pulse Ox 98.1 F 89 18 142/65 H 96 08/07/19 14:35 08/07/19 14:35 08/07/19 14:35 08/07/19 14:35 08/07/19 14:35 - Diagnostic Test Radiology reviewed: Image reviewed, Reports reviewed Discharge - Discharge Clinical Impression: Left buttock pain Condition: Stable Disposition: HOME, SELF-CARE Instructions: Ice Packs ([facility]), Muscle Relaxers ([facility]), Toradol Injection ([facility]) Additional Instructions: *You have been evaluated for left buttocks pain radiating down your left leg *Take medication as prescribed *Rest/Ice packs as indicated *Follow up with a primary care provider within one week *Return to ED for worsening condition, changes, needs Monitor your blood pressure. Your blood pressure was elevated today. This may be because you were anxious, in pain or because you need medication. It is important to follow up with your primary care provider for full evaluation. Prescriptions: Cyclobenzaprine HCl [Flexeril 10 mg Tablet] 10 mg PO TIDP PRN #15 tab PRN Reason: Lidocaine [Lidoderm 5% (700 mg) Transdermal Patch] 1 patch TP DAILY #30 adh..patch Forms: Elevated Blood Pressure, Return to Work
[2019-08-07] MEDS ORDERED: KETOROLAC TROMETHAMINE 60 MG/2 ML SDV IM ONE (15:39)
[2019-08-07] MEDS ORDERED: LIDOCAINE 5% (700 MG) TRANSDERMAL ADH..PATCH TP ONE (15:39)
== END 2019-08-07 16:07 | disposition home or self-care (01) ==
LOC: ER 14:23
DX: M79.10 Myalgia, unspecified site (principal); F17.200 Nicotine dependence, unspecified, uncomplicated
CPT/HCPCS: 99283; 96372; 72110; J1885

== ENCOUNTER 2019-12-28 06:55 | Emergency (ER) | payer BC ==
--- NOTE | 2019-12-28 08:13 | ER Document Report ---
ED General - General Chief Complaint: Flu Symptoms Stated Complaint: COUGHING AND RASH ON FACE Time Seen by Provider: 12/28/19 08:13 TRAVEL OUTSIDE OF THE [place] IN LAST 30 DAYS: No - HPI Patient complains to provider of: cough and SOB Notes: Well-appearing female no acute distress presents with a 4-day history of cough myalgias. Denies fever chills. Patient has history of tobacco use. Not sure if she has COPD or not. Has been taking 's doxycycline for the last 4 days without change in symptoms. Concerned she may have the flu. Denies any chest pain. - Related Data Allergies/Adverse Reactions: strawberry [[place]] Allergy (Verified 08/07/19 14:43) rash Past Medical History - Social History Smoking Status: Current Every Day Smoker Chew tobacco use (# tins/day): No Frequency of alcohol use: None Drug Abuse: None Family History: Reviewed & Not Pertinent Patient has suicidal ideation: No Patient has homicidal ideation: No - Past Medical History Cardiac Medical History: Reports: Hx DVT - RLE, Hx Heart Attack - at 36? Renal/ Medical History: Reports: Hx Ovarian Cysts. Denies: Hx Peritoneal Dialysis Musculoskeletal Medical History: Reports Hx Musculoskeletal Trauma Past Surgical History: Reports: Hx Cardiac Catheterization, Hx Section - 3, Hx Genitourinary Surgery - Bladder repair after the bladder was cut in half stone , Hx Hysterectomy, Hx Tubal Ligation - Immunizations Immunizations up to date: Yes Hx Diphtheria, Pertussis, Tetanus Vaccination: Yes Hx Pneumococcal Vaccination: 07/20/11 Review of Systems - Review of Systems Notes: REVIEW OF SYSTEMS: CONSTITUTIONAL: -fevers, -chills EENT: -eye pain, -difficulty swallowing, -nasal congestion CARDIOVASCULAR: -chest pain, -syncope. RESPIRATORY: positive cough, positive SOB GASTROINTESTINAL: -abdominal pain, -nausea, -vomiting, -diarrhea GENITOURINARY: -dysuria, -hematuria MUSCULOSKELETAL: -back pain, -neck pain SKIN: -rash or skin lesions. HEMATOLOGIC: -easy bruising or bleeding. LYMPHATIC: -swollen, enlarged glands. NEUROLOGICAL: -altered mental status or loss of consciousness, -headache, - neurologic symptoms PSYCHIATRIC: -anxiety, -depression. ALL OTHER SYSTEMS REVIEWED AND NEGATIVE. Physical Exam - Vital signs Vitals: Temp Pulse Resp BP Pulse Ox 98.0 F 84 18 146/71 H 96 12/28/19 07:15 12/28/19 07:15 12/28/19 07:15 12/28/19 07:15 12/28/19 07:15 - Notes Notes: PHYSICAL EXAMINATION: GENERAL: Well-appearing, well-nourished and in no acute distress. HEAD: Atraumatic, normocephalic. EYES: Pupils equal round and reactive to light, extraocular movements intact, sclera anicteric, conjunctiva are normal. ENT: nares patent, oropharynx clear without exudates. Moist mucous membranes. NECK: Normal range of motion, supple without lymphadenopathy LUNGS: mild wheezing HEART: Regular rate and rhythm without murmurs ABDOMEN: Soft, nontender, normoactive bowel sounds. No guarding, no rebound. No masses appreciated. EXTREMITIES: Normal range of motion, no pitting or edema. No cyanosis. NEUROLOGICAL: Cranial nerves grossly intact. Normal speech, normal gait. Normal sensory and motor exams. PSYCH: Normal mood, normal affect. SKIN: Warm, Dry, normal turgor, no rashes or lesions noted. Course - Re-evaluation Re-evalutation: 12/28/19 08:24 54-year-old female presents with symptoms of viral illness for 3 to 4 days. Will test for flu, strep throat obtain chest x-ray. Patient given breathing treatment in the emergency department. 12/28/19 09:51 Patient's chest x-ray negative for acute focal infiltrate. Patient's influenza swab negative strep swab negative. Patient be discharged home improved follow-up PCP return if any worsening changes. - Vital Signs Vital signs: Temp Pulse Resp BP Pulse Ox 98.4 F 84 18 146/71 H 96 12/28/19 08:07 12/28/19 07:15 12/28/19 07:15 12/28/19 07:15 12/28/19 07:15 Discharge - Discharge Clinical Impression: Viral illness Condition: Stable Disposition: HOME, SELF-CARE Instructions: Viral Syndrome ([facility]) Additional Instructions: Follow-up with PCP
[2019-12-28] MEDS ORDERED: IPRATROPIUM/ALBUTEROL 0.5-2.5 MG/3 ML AMPUL NEB ONE (08:17)
[2019-12-28 08:42] LABS: A TYPE INFLUENZA AG NEGATIVE (NEGATIVE); B INFLUENZA AG NEGATIVE (NEGATIVE)
--- NOTE | 2019-12-28 09:41 | RADIOLOGY REPORT (SQ) ---
EXAM DESCRIPTION: CHEST 2 VIEWS COMPLETED DATE/TIME: 12/28/2019 8:49 am REASON FOR STUDY: cough COMPARISON: Chest films 07/21/2017, 02/22/2013 EXAM PARAMETERS: NUMBER OF VIEWS: two views TECHNIQUE: Digital Frontal and Lateral radiographic views of the chest acquired. RADIATION DOSE: NA LIMITATIONS: none FINDINGS: LUNGS AND PLEURA: No opacities, masses or pneumothorax. No pleural effusion. MEDIASTINUM AND HILAR STRUCTURES: No masses or contour abnormalities. HEART AND VASCULAR STRUCTURES: Heart normal size. No evidence for failure. BONES: No acute findings. HARDWARE: None in the chest. OTHER: No other significant finding. IMPRESSION: NO ACUTE RADIOGRAPHIC FINDING IN THE CHEST. TECHNICAL DOCUMENTATION: JOB ID: [id number] 2010 [employer]- All Rights Reserved Reading location - IP/workstation name: [email or web address]
[2019-12-28 10:12] VITALS: BP 135/80
== END 2019-12-28 10:11 | disposition home or self-care (01) ==
LOC: ER 06:55
DX: B34.9 Viral infection, unspecified (principal); R05 Cough; R06.02 Shortness of breath; R06.2 Wheezing; M79.10 Myalgia, unspecified site; F17.200 Nicotine dependence, unspecified, uncomplicated; Z91.018 Allergy to other foods
CPT/HCPCS: 94640; 99283; 87070; 87880; 87804; 71046; J7620

== ENCOUNTER → 2020-01-10 | Outpatient (CLI) | payer BC ==
[2020-01-10 14:25] LABS: A TYPE INFLUENZA AG NEGATIVE (NEGATIVE); B INFLUENZA AG NEGATIVE (NEGATIVE)
== END ==
LOC: RDC 13:20
PROVIDERS: ATTEND Registered Nurse
DX: Z20.828 Contact with and (suspected) exposure to other viral communicable diseases (principal)
CPT/HCPCS: 36415; 87070; 87635; 87804; 87880

== ENCOUNTER 2020-03-16 11:21 | Emergency (ER) | payer BC ==
--- NOTE | 2020-03-16 12:22 | RADIOLOGY REPORT (SQ) ---
EXAM DESCRIPTION: CHEST SINGLE VIEW IMAGES COMPLETED DATE/TIME: 03/16/2020 12:10 pm REASON FOR STUDY: shortness of breath COMPARISON: 12/28/2019 EXAM PARAMETERS: NUMBER OF VIEWS: One view. TECHNIQUE: Single frontal radiographic view of the chest acquired. RADIATION DOSE: NA LIMITATIONS: None. FINDINGS: LUNGS AND PLEURA: No opacities, masses or pneumothorax. No pleural effusion. MEDIASTINUM AND HILAR STRUCTURES: No masses. Contour normal. HEART AND VASCULAR STRUCTURES: Heart normal in size. Normal vasculature. BONES: No acute findings. HARDWARE: None in the chest. OTHER: No other significant finding. IMPRESSION: NO ACUTE RADIOGRAPHIC FINDING IN THE CHEST. TECHNICAL DOCUMENTATION: JOB ID: [id number] 2010 [employer]- All Rights Reserved Reading location - IP/workstation name: [email or web address]
[2020-03-16] MEDS ORDERED: IPRATROPIUM/ALBUTEROL 0.5-2.5 MG/3 ML AMPUL NEB ONE (13:16)
[2020-03-16] MEDS ORDERED: METHYLPREDNISOLONE INJ 125 MG/2 ML SDV IV ONE (13:16)
--- NOTE | 2020-03-16 13:21 | ER Document Report ---
ED Respiratory Problem - General Chief Complaint: Shortness Of Breath Stated Complaint: TROUBLE BREATHING Time Seen by Provider: 03/16/20 12:59 Mode of Arrival: Ambulatory Information source: Patient Notes: Patient is a 54-year-old female comes emergency room complaining of 3-day onset of increasing shortness of breath. Patient states she has smoked minimal pack and half cigarettes per day since she was 13 years old. She started with symptoms of shortness of breath and dyspnea approximately 3 days ago. She is continue to smoke. Patient denies any cardiac problems in the past. She cu rrently takes a albuterol inhaler without any significant relief. Patient denies any chest pain. Patient also denies any fevers nausea vomiting or diarrhea. She has had no abdominal pain. Patient does mention that she had contact with a niece that is in the who was exposed to COVID-19 approximately 3 weeks ago and is in quarantine in [place]. Patient states that she was in contact with her niece 2 weeks ago. TRAVEL OUTSIDE OF THE [place] IN LAST 30 DAYS: No - Related Data Allergies/Adverse Reactions: strawberry [[place]] Allergy (Verified 08/07/19 14:43) rash Home Medications: voltaren gel, ventolin, tizanidine, lyrica, ibuprofen Past Medical History - Social History Smoking Status: Current Every Day Smoker Cigarette use (# per day): Yes - 1.5 packs/day Chew tobacco use (# tins/day): No Smoking Education Provided: Yes Frequency of alcohol use: None Drug Abuse: None Family History: Reviewed & Not Pertinent Patient has homicidal ideation: No - Past Medical History Cardiac Medical History: Reports: Hx DVT - RLE, Hx Heart Attack - at 36? Renal/ Medical History: Reports: Hx Ovarian Cysts. Denies: Hx Peritoneal Dialysis Musculoskeletal Medical History: Reports Hx Musculoskeletal Trauma Past Surgical History: Reports: Hx Cardiac Catheterization, Hx Section - 3, Hx Genitourinary Surgery - Bladder repair after the bladder was cut in half stone , Hx Hysterectomy, Hx Tubal Ligation - Immunizations Immunizations up to date: Yes Hx Diphtheria, Pertussis, Tetanus Vaccination: Yes Hx Pneumococcal Vaccination: 07/20/11 Review of Systems - Review of Systems Constitutional: denies: Fever EENT: Nose congestion Cardiovascular: Dyspnea. denies: Chest pain, Palpitations, Heart racing, Orthop krys Respiratory: See HPI, Short of breath, Wheezing Gastrointestinal: No symptoms reported Genitourinary: No symptoms reported Female Genitourinary: No symptoms reported Musculoskeletal: No symptoms reported Skin: No symptoms reported Hematologic/Lymphatic: No symptoms reported Neurological/Psychological: No symptoms reported -: Yes All other systems reviewed and negative Physical Exam - Vital signs Vitals: Temp Pulse Resp BP Pulse Ox 98.0 F 84 22 H 146/85 H 98 03/16/20 11:39 03/16/20 11:39 03/16/20 11:39 03/16/20 11:39 03/16/20 11:39 Interpretation: Hypertensive - Notes Notes: PHYSICAL EXAMINATION: GENERAL: Patient is a well-nourished well-developed 54-year-old female is in no apparent distress on physical exam. HEAD: Atraumatic, normocephalic. EYES: Pupils equal round and reactive to light, extraocular movements intact, conjunctiva are normal. ENT: Examination head and upper airway showed nasal mucosa to be mildly erythematous and edematous with some rhinorrhea noted no color. Patient has some mild frontal sinus tenderness to palpation. Maxillary sinuses are nontender. Examination of the TMs show some bulging but no fluid levels. Posterior pharynx shows some moderate drainage in the posterior pharynx that is slight yellowish-green in color. Uvula is midline with no encroachment at this time. NECK: Normal range of motion, supple without lymphadenopathy LUNGS: auscultation patient's lungs show she has bilateral breath sounds with breath sounds decreased throughout she has notable inspiratory expiratory wheeze with some mild rhonchi scattered throughout. No rales heard. HEART: Regular rate and rhythm without murmurs ABDOMEN: Soft, nontender, nondistended abdomen. No guarding, no rebound. No masses appreciated. Female : deferred Musculoskeletal: Normal range of motion, no pitting or edema. No cyanosis. NEUROLOGICAL: Normal speech, normal gait. Normal sensory, motor exams PSYCH: Normal mood, normal affect. SKIN: Warm, Dry, normal turgor, no rashes or lesions noted. Course - Re-evaluation Re-evalutation: 03/16/20 16:31 Patient received a continuous neb for 3 treatments. She also received Solu- Medrol in some magnesium. This perked her up substantially. Patient was ambulated after treatments establishing approximately 98 to 99% on her ambulation on pulse ox. She feels much better and is requesting to go home. Given patient has these flareups occasionally with the weather we find that we will place her on a steroid taper I will attempt to order her a nebulizer with DuoNeb. And she is being given the physician on-call for follow-up. I have expressed breast concern for the patient is she is is 54 and heavy smoker and does not have a primary care provider at present. She states that she will search when out. - Vital Signs Vital signs: Temp Pulse Resp BP Pulse Ox 98.0 F 84 22 H 146/85 H 98 03/16/20 11:39 03/16/20 11:39 03/16/20 11:39 03/16/20 11:39 03/16/20 11:39 - Laboratory Result Diagrams: 03/16/20 13:30 03/16/20 13:30 Laboratory results interpreted by me: 03/16/20 03/16/20 13:30 13:30 Baso % (Auto) 2.2 H Sodium 136.0 L Discharge - Discharge Clinical Impression: COPD (chronic obstructive pulmonary disease) Qualifiers: COPD type: unspecified COPD Qualified Code(s): J44.9 - Chronic obstructive pulmonary disease, unspecified Upper respiratory infection Qualifiers: URI type: unspecified viral URI Qualified Code(s): J06.9 - Acute upper respiratory infection, unspecified Disposition: HOME, SELF-CARE Instructions: Upper Respiratory Illness ([facility]), Chronic Obstructive Lung Disease ([facility]) Additional Instructions: As we discussed and attempting to get you a nebulizer machine along with you using the unit dose medications that are twofold in the medication. You do this 3 times a day and I would do them religiously for the next 3 to 4 days and then as needed after that. I am also put you on some steroids to help open you up and keep you open. As we also discussed that should you have increasing or worsening of symptoms you need to return to ER for reevaluation and possible admission. Given that this is something that occurs on semi-regular basis when the weather changes I feel comfortable sending her home knowing that this is worked in the past. But important thing is for you to remember that if it starts to worsen come in for reevaluation. Also given you referral to the on- call physician who may be accepting new patients. If for any reason you can find a another doctor you wish to follow-up with please do so relatively soon. Prescriptions: Chlorpheniramine Maleate [Chlor-Trimeton 4 Mg Tablet] 4 mg PO TID #21 tablet Prednisone [Deltasone 10 mg Tablet] 10 mg PO ASDIR PRN #21 tablet PRN Reason: Ipratropium/Albuterol Sulfate [Duoneb 3 ml Ampul] 3 ml NEB RTQ6 PRN #60 vial.neb PRN Reason: Forms: Elevated Blood Pressure, Smoking Cessation Education, Return to Work Referrals: [facility] [Provider Group] - Follow up as needed KEDAR DOMINGO MD [ACTIVE STAFF] - Follow up as needed
[2020-03-16] MEDS: MAGNESIUM SULFATE/D5W 1 GM/100 ML RTUPB IV SCH ×2 (13:35→13:56)
[2020-03-16 13:43] LABS: ABSOLUTE BASOPHILS # (AUTO) 0.2 10^3/uL (0.0-0.2); ABSOLUTE EOSINOPHILS # (AUTO) 0.3 10^3/uL (0.0-0.6); ABSOLUTE LYMPHOCYTES (AUTO) 2.9 10^3/uL (0.5-4.7); ABSOLUTE MONOCYTES (AUTO) 0.5 10^3/uL (0.1-1.4); ABSOLUTE NEUT (AUTO) 5.6 10^3/uL (1.7-8.2); BASOPHILS % (AUTO) 2.2 % (0-2); EOSINOPHILS % (AUTO) 3.3 % (0-6); HEMATOCRIT 40.4 % (36.0-47.0); HEMOGLOBIN 14.1 g/dL (12.0-15.5); LYMPHOCYTES % (AUTO) 30.4 % (13-45); MEAN CORPUSCULAR HEMOGLOBIN 33.1 pg (27.0-33.4); MEAN CORPUSCULAR HGB CONC 34.9 g/dL (32.0-36.0); MEAN CORPUSCULAR VOLUME 95 fl (80-97); MONOCYTES % (AUTO) 5.4 % (3-13); PLATELET COUNT 294 10^3/uL (150-450); RED BLOOD COUNT 4.26 10^6/uL (3.72-5.28); RED CELL DISTRIBUTION WIDTH 13.2 % (11.5-14.0); SEGMENTED NEUTROPHILS % (AUTO) 58.7 % (42-78); TOTAL CELLS COUNTED % (AUTO) 100 %; WHITE BLOOD COUNT 9.6 10^3/uL (4.0-10.5)
[2020-03-16] MEDS ORDERED: ACETAMINOPHEN 325 MG TABLET PO ONE (13:57)
[2020-03-16 14:11] LABS: ALBUMIN 4.2 g/dL (3.5-5.0); ALKALINE PHOSPHATASE 62 U/L (38-126); ANION GAP 5 (5-19); ASPARTATE AMINO TRANSFERASE 24 U/L (14-36); BILIRUBIN,TOTAL 0.4 mg/dL (0.2-1.3); BLOOD UREA NITROGEN 17 mg/dL (7-20); CARBON DIOXIDE 26 mmol/L (22-30); CHLORIDE 105 mmol/L (98-107); GLUCOSE 94 mg/dL (75-110); POTASSIUM 4.5 mmol/L (3.6-5.0); TOTAL PROTEIN 6.9 g/dL (6.3-8.2)
[2020-03-16 17:16] VITALS: BP 147/81
--- NOTE | 2020-03-16 18:59 | EKG REPORT ---
SEVERITY:- BORDERLINE ECG - SINUS RHYTHM : Confirmed by: Yo Wing MD 16-Mar-2020 18:58:01
== END 2020-03-16 17:16 | disposition home or self-care (01) ==
LOC: ER 11:21
DX: J44.9 Chronic obstructive pulmonary disease, unspecified (principal); J06.9 Acute upper respiratory infection, unspecified; F17.210 Nicotine dependence, cigarettes, uncomplicated; Z20.828 Contact with and (suspected) exposure to other viral communicable diseases; Z86.718 Personal history of other venous thrombosis and embolism; Z90.710 Acquired absence of both cervix and uterus
CPT/HCPCS: 93005; 94640; 99285; 96375; 96365; 36415; 83735; 85025; 87635; 80053; 84484; 71045; 93010; J2930; J3475; J7620; C9803

== ENCOUNTER 2020-04-07 14:13 | Emergency (ER) | payer BC ==
--- NOTE | 2020-04-07 15:49 | ER Document Report ---
HPI - HPI Time Seen by Provider: 04/07/20 15:08 Pain Level: Denies Notes: Patient is an otherwise healthy 54-year-old female presenting to the emergency department from her primary care provider's office with concern for possible COPD exacerbation. Patient reports she was diagnosed with COPD approximately 1 month ago. She states 2 days ago she went to her primary care provider's office with worsening difficulty breathing and they started her on 60 mg of prednisone daily, Advair inhaler daily, albuterol nebulizers and also azithromycin. She states that she went there today for a follow-up appointment where they found her to have an oxygen saturation of 94%. She denied any difficulty breathing or shortness of breath. She states that gave her 125 mg Solu-Medrol IV, Levaquin 750 IV and 1 L of fluids. They also gave her 3 breathing treatments and then decided she should come to the ER because her oxygen saturation remained at 94%. Patient states she feels fine and does not have any shortness of breath at this time. She denies any fever and states that she has a mild cough but is not producing any sputum. - ROS Systems Reviewed and Negative: Yes All other systems reviewed and negative - CONSTITUTIONAL Constitutional: DENIES: Fever, Chills - EENT EENT: REPORTS: Congestion - RESPIRATORY Respiratory: REPORTS: Trouble Breathing, Coughing - REPRODUCTIVE Reproductive: DENIES: : Past Medical History - General Information source: Patient - Social History Smoking Status: Current Every Day Smoker Chew tobacco use (# tins/day): No Frequency of alcohol use: None Drug Abuse: None Family History: Reviewed & Not Pertinent Patient has homicidal ideation: No - Past Medical History Cardiac Medical History: Reports: Hx DVT - RLE, Hx Heart Attack - at 36? Pulmonary Medical History: Reports: Hx COPD Renal/ Medical History: Reports: Hx Ovarian Cysts. Denies: Hx Peritoneal Dialysis Musculoskeletal Medical History: Reports Hx Musculoskeletal Trauma Past Surgical History: Reports: Hx Cardiac Catheterization, Hx Section - 3, Hx Genitourinary Surgery - Bladder repair after the bladder was cut in half stone , Hx Hysterectomy, Hx Tubal Ligation - Immunizations Immunizations up to date: Yes Hx Diphtheria, Pertussis, Tetanus Vaccination: Yes Hx Pneumococcal Vaccination: 07/20/11 Vertical Provider Document - CONSTITUTIONAL Notes: PHYSICAL EXAMINATION: GENERAL: Well-appearing, well-nourished and in no acute distress. HEAD: Atraumatic, normocephalic. EYES: Pupils equal round and reactive to light, extraocular movements intact, conjunctiva are normal. ENT: Nares patent, oropharynx clear without exudates. Moist mucous membranes. NECK: Normal range of motion, supple without lymphadenopathy LUNGS: Breath sounds clear to auscultation bilaterally and equal. No wheezes rales or rhonchi. HEART: Regular rate and rhythm without murmurs ABDOMEN: Soft, nontender, nondistended abdomen. No guarding, no rebound. No masses appreciated. Female : deferred Musculoskeletal: Normal range of motion, no pitting or edema. No cyanosis. NEUROLOGICAL: Cranial nerves grossly intact. Normal speech, normal gait. Normal sensory, motor exams PSYCH: Normal mood, normal affect. SKIN: Warm, Dry, normal turgor, no rashes or lesions noted. - INFECTION CONTROL TRAVEL OUTSIDE OF THE [place] IN LAST 30 DAYS: No Course - Re-evaluation Re-evalutation: Patient appears well, nontoxic, vital signs within normal limits. She is not hypoxic or tachypneic. Her lung sounds are clear and equal bilaterally. Likely the medications that she was given at the clinic have sent in at this time. Patient is on the appropriate outpatient medications for COPD exacerbation. She feels comfortable going home. She will be discharged home at this time she understands ED return precautions. - Vital Signs Vital signs: Temp Pulse Resp BP Pulse Ox 97.7 F 95 20 137/91 H 97 04/07/20 14:51 04/07/20 14:51 04/07/20 14:51 04/07/20 14:51 04/07/20 14:51 Discharge - Discharge Clinical Impression: COPD exacerbation Condition: Stable Disposition: HOME, SELF-CARE Instructions: Chronic Obstructive Lung Disease ([facility]) Additional Instructions: Please continue your medications as prescribed. Increase your ablbuterol to every 4 hours. Return to ED if worse. Forms: Return to Work
[2020-04-07 15:55] VITALS: BP 115/76
== END 2020-04-07 15:55 | disposition home or self-care (01) ==
LOC: ER 14:13
DX: J44.1 Chronic obstructive pulmonary disease with (acute) exacerbation (principal); F17.200 Nicotine dependence, unspecified, uncomplicated; Z86.718 Personal history of other venous thrombosis and embolism; Z90.710 Acquired absence of both cervix and uterus; I25.2 Old myocardial infarction
CPT/HCPCS: 99284